=== PATIENT | female | born 1995 | race Caucasian/White ===

== ENCOUNTER 2018-11-26 08:13 | Inpatient (IN) ==
[2018-11-26] MEDS ORDERED: OXYTOCIN 30 UNITS/500 ML BAG IV PRN ×3 (08:38→15:18)
--- NOTE | 2018-11-26 08:40 | History & Physical Report ---
Date of Service November 26, 2018 Assessment & Plan (1) PROM (premature rupture of membranes): 23yo at 39.3 weeks GA. PROM 1. Fetus: Cat 1 2. Labor: PROM. Will start oxytocin 3. Vitals WNL 4. GBS neg 5. Rh positive History of Present Illness Primary Care Provider: NO PCP 23yo at 39.3 weeks GA. Patient presents with LOF and mild irregular contractions. Denies VB. Good FM. course complicated be tobacco use in early . Allergies Allergy/AdvReac Type Severity Reaction Status Date / Time No Known Allergies Allergy Unverified 12/13/15 20:42 Patient History Social History Preferred Language: Hebrew Communication Ability: Effective marital status: Single Current Living Situation: Parent Current Living Situation Comment: lives with her father-shared custody of daughter Smoking Status: Current every day smoker Tobacco Type: cigarettes Cigarettes Per Day: 5 Do You Dip or Chew Tobacco: No Second Hand Exposure: No Hx Alcohol Use: No Hx Substance Use: No Physical Exam Gastrointestinal (Abdomen): Percussion/Palpation: abdomen soft; abdomen nontender Genitourinary: OB Exam Abdomen: + vertex and + estimated weight (6.5- 7.5) Manual OB Exam: + cervical dilation 2 cm, + cervical effacement 70%, + station -2 and + amniotic fluid clear, nitrazine positive and ferning present OB Exam Monitor Tracing: + external uterine monitor used and + category I Results & Data Vital Signs (Past 12 Hours) Vital Signs Pulse BP 11/26/18 08:17 73 126/67
[2018-11-26 08:59] LABS: Hematocrit (blood only) 34.8 % (37-47); Mean Corpuscular Volume 96.1 fL (80-100); Mean Platelet Volume 9.9 fL (7.4-10.4); Platelet Count 203 K/uL (130-400); RDW Standard Deviation 45.3 fL (36.4-46.3); Red Blood Count 3.62 M/uL (4.2-5.4); White Blood Count 11.58 K/uL (4.8-10.8)
[2018-11-26] MEDS: LACTATED RINGER'S 1,000 ML IV PRN ×2 (09:10→10:53)
[2018-11-26 09:13] LABS: Mean Corpuscular Hgb Conc 34.5 g/dL (32-36)
[2018-11-26] MEDS ORDERED: fentaNYL citrate 100 MCG/2 ML VIAL ONE (10:35)
[2018-11-26] MEDS ORDERED: ePHEDrine sulfate 50 MG/ML AMP ONE (10:35)
[2018-11-26] MEDS ORDERED: BUPIVACAINE 0.25% 30 ML VIAL ONE (10:35)
[2018-11-26] MEDS ORDERED: fentaNYL 2MCG/ML ROPIV 1.25MG/ML 100 ML BAG EPI ONE (10:36)
--- NOTE | 2018-11-26 11:07 | Anesthesiology Consultation ---
Date of Service November 26, 2018 Assessment & Plan (1) Encounter for pre-operative examination: Chart Review Chart Review: Acceptable Risk for Labor Epidural History Height/Weight Height: 5 ft 3 in Weight: 68.946 kg Allergies Allergy/AdvReac Type Severity Reaction Status Date / Time No Known Allergies Allergy Verified 11/26/18 10:06 Medications Home Medications Medication Instructions Recorded Confirmed Last Taken PNV no.[id number] 1 tab PO DAILY 11/26/18 11/26/18 11/25/18 08:00 [ Gummies] cetirizine [Zyrtec] 10 mg PO DAILY PRN 11/26/18 11/26/18 Unknown ranitidine HCl [Zantac] 150 mg PO DAILY PRN 11/26/18 11/26/18 Unknown Active Medications Generic Name Dose Route Start Last Admin Trade Name Freq PRN Reason Stop Dose Admin Oxytocin 30 units in 500 mls @ 4 mls/hr 11/26/18 08:39 11/26/18 10:00 Pitocin IV 12/26/18 08:38 0.24 units/hr .Q24H PRN 4 mls/hr Labor Induction/Augmentation Titration Protocol 0.24 UNITS/HR Lactated Ringer's 1,000 mls @ 125 mls/hr 11/26/18 08:38 11/26/18 10:53 Lr IV 11/28/18 08:37 999 mls/hr .Q8H PRN Administration L&D Protocol Protocol Past Medical History Medical History Anxiety Asthma Smoker Social History Smoking Status: Current every day smoker tobacco type: cigarettes Smoking cigarettes per day: 5 Do You Dip or Chew Tobacco: No Hx Alcohol Use: No Hx Substance Use: No Physical Exam Vital Signs Last Vital Signs Temp 36.5 C 11/26/18 10:51 Pulse 77 11/26/18 11:01 Resp 20 11/26/18 10:51 BP 120/69 11/26/18 10:51 Pulse Ox 99 11/26/18 11:01 Testing Laboratory Results 11/26/18 08:47
[2018-11-26] MEDS ORDERED: NALOXONE HCL 1 MG in SODIUM CHLORIDE 0.9% 1000ML 1,000 ML IV PRN (11:32)
[2018-11-26] MEDS ORDERED: fentaNYL 2MCG/ML ROPIV 1.25MG/ML 100 ML BAG EPI PRN (11:32)
[2018-11-26] MEDS ORDERED: ONDANSETRON INJ 2 MG/ML 2 ML VIAL IV PRN (11:32)
[2018-11-26] MEDS ORDERED: NALOXONE HCL 0.4 MG/1 ML VIAL/CARP IV PRN (11:32)
[2018-11-26] MEDS ORDERED: ePHEDrine sulfate 50 MG/ML AMP IV PRN (11:32)
--- NOTE | 2018-11-26 13:27 | Labor Progress Brief Note ---
Date of Service November 26, 2018 Subjective Reason For Note: Routine Evaluation Assessment & Plan (1) PROM (premature rupture of membranes): 23yo at 39.3 weeks GA. PROM 1. Fetus: Cat 1 2. Labor: PROM. Progressing - Continue oxytocin 3. Vitals WNL 4. GBS neg 5. Rh positive Physical Exam Genitourinary: OB Exam Abdomen: + vertex and + regular contractions Manual OB Exam: + cervical dilation 8 cm, + cervical effacement 100% and + station 0 OB Exam Monitor Tracing: + external FHT monitor used, + external uterine monitor used and + category I Results & Data Vital Signs (Past 12 Hours) Vital Signs Temp Pulse Resp BP Pulse Ox 11/26/18 13:22 65 100 11/26/18 13:17 114 H 94 11/26/18 13:16 65 119/62 11/26/18 13:12 89 100 11/26/18 13:11 63 122/66 11/26/18 13:08 72 120/72 11/26/18 13:07 55 L 100 11/26/18 13:03 67 108/79 11/26/18 13:02 86 100 11/26/18 12:57 62 97 11/26/18 12:56 65 112/69 11/26/18 12:52 88 98 11/26/18 12:51 65 118/67 11/26/18 12:47 70 131/61 97 11/26/18 12:43 66 115/59 L 11/26/18 12:42 73 97 11/26/18 12:37 64 97 11/26/18 12:36 68 117/68 11/26/18 12:32 68 117/67 97 11/26/18 12:28 74 113/63 11/26/18 12:27 66 96 11/26/18 12:22 81 99 11/26/18 12:21 88 115/68 11/26/18 12:17 74 97 11/26/18 12:16 67 116/61 11/26/18 12:12 82 98 11/26/18 12:11 80 117/61 11/26/18 12:07 70 121/62 97 11/26/18 12:02 77 97 11/26/18 12:01 66 120/61 11/26/18 11:57 68 122/58 L 98 11/26/18 11:52 75 118/60 98 11/26/18 11:48 72 125/59 L 11/26/18 11:47 83 98 11/26/18 11:42 77 98 11/26/18 11:41 64 112/63 11/26/18 11:37 81 99 11/26/18 11:35 76 111/59 L 11/26/18 11:32 78 110/61 99 11/26/18 11:29 82 125/63 11/26/18 11:27 62 100 11/26/18 11:26 56 L 120/65 11/26/18 11:24 68 118/58 L 11/26/18 11:22 75 99 11/26/18 11:17 76 99 11/26/18 11:12 73 100 11/26/18 11:10 81 89 L 11/26/18 11:07 75 100 11/26/18 11:01 77 99 11/26/18 10:56 89 100 11/26/18 10:51 36.5 C 63 20 120/69 99 11/26/18 09:26 76 117/72 11/26/18 08:34 36.5 C 18 11/26/18 08:17 73 126/67
[2018-11-26] MEDS ORDERED: BISACODYL 10 MG SUPP PR PRN (15:18)
[2018-11-26] MEDS ORDERED: DIPHTHERIA/TETANUS/PERTUSSIS 0.5 ML SYR/VIAL IM ONE (15:18)
[2018-11-26] MEDS ORDERED: HYDROCORTISONE ACETATE 25 MG SUPP PR PRN (15:18)
[2018-11-26] MEDS ORDERED: ACETAMINOPHEN 325 MG TAB PO PRN (15:18)
[2018-11-26] MEDS ORDERED: SUPERCREAM 0.870% 15 GM JAR EXT PRN (15:18)
[2018-11-26] MEDS ORDERED: BENZOCAINE 20% AER SPR 82.5 GM CAN EXT PRN (15:18)
--- NOTE | 2018-11-26 16:59 | Delivery Summary ---
DATE OF OPERATION: 11/26/2018 PROCEDURE: Normal spontaneous vaginal delivery. SURGEON: Dr. Michael Bailey. PREOPERATIVE DIAGNOSES: 1. Single intrauterine at 39 weeks 3 days gestational age. 2. Premature rupture of membranes. 3. GBS negative. POSTOPERATIVE DIAGNOSES: 1. Single intrauterine at 39 weeks 3 days gestational age. 2. Premature rupture of membranes. 3. GBS negative. 4. Delivered. ESTIMATED BLOOD LOSS: 200 mL. DRAINS: None. FLUIDS: Continuous lactated ringer. URINE OUTPUT: Not measured. COMPLICATIONS: None. FINDINGS: Viable male with weight pending. Apgars of 9 and 9 at 1 and 5 minutes respectively. INDICATIONS: The patient is a 23-year-old G3, P1-0-1-1, admitted at 39 weeks 3 days gestational age with premature rupture of membranes. At time of admission, the patient was noted to be 2 cm dilated, -2 station, cephalic by sutures. The patient was augmented with oxytocin per regular protocol and progressed in labor with rupture of a forebag. The patient received an epidural for anesthesia. The patient felt the urge to push and pushed for approximately 20-25 minutes to achieve delivery. DESCRIPTION OF PROCEDURE: The patient progressed to 10 cm dilated, +2 station, pushed over intact perineum with epidural anesthesia and delivered a viable male infant with weight and Apgars as noted above. Head of the delivered in ABELINO position. No nuchal cord was noted. Body and shoulders quickly followed. The was noted to be vigorous soon after delivery and a 1 minute delayed cord clamping was initiated. The cord was then double clamped and cut and the remained on maternal abdomen as it was still noted to be vigorous. Cord blood was then obtained. Attention was then turned delivery of the placenta, it was delivered intact, 3-vessel cord, gentle cord traction. On inspection of perineum, vagina and cervix, there is noted to be no lacerations. Sponge and instrument counts were correct at the completion of the case. Both mother and were stable in the immediate post delivery period. I attest to the content of the Intraoperative Record and any orders documented therein. Any exceptions are noted below. MTDD
--- NOTE | 2018-11-26 17:20 | Anesthesia Procedure Note ---
Date of Service November 26, 2018 Anesthesia Post Epidural Note Vital Signs Vital Signs: Temp Pulse Resp BP Pulse Ox 36.8 C 77 18 117/56 L 98 11/26/18 13:29 11/26/18 16:51 11/26/18 13:37 11/26/18 16:51 11/26/18 15:12 Pain Intensity Abdomen: Pain Intensity: 5 Notes Mental Status: alert / awake / arousable and participated in evaluation Nausea / Vomiting: adequately controlled Pain: adequately controlled Airway Patency, RR, SpO2: stable & adequate BP & HR: stable & adequate Hydration State: stable & adequate Neuraxial Anesthesia: was administered and sensory block is resolving Anesthetic Complications: no major complications apparent Epidural: Removed without complications and With tip intact
[2018-11-26] MEDS: DOCUSATE SODIUM 100 MG CAP PO SCH (21:11)
[2018-11-26] MEDS: IBUPROFEN 600 MG TAB PO PRN (21:32)
[2018-11-27] MEDS: IBUPROFEN 600 MG TAB PO PRN (05:31)
[2018-11-27 06:55] LABS: Hematocrit (blood only) 32.9 % (37-47); Hemoglobin 11.3 g/dL (12.0-16.0)
--- NOTE | 2018-11-27 06:56 | Obstetrical Progress Note ---
Date of Service <Fracisco Coronado MD - Last Filed: 11/27/18 07:06> November 27, 2018 Assessment & Plan <Fracisco Coronado MD - Last Filed: 11/27/18 07:06> Day #:: 1 ( 23-year-old PPD#1 status post vaginal delivery at 39+3. - PPD#1 - GBS negative, Blood Type O+ - Feels well today. Eating well, voiding well, ambulating well. - Pain well controlled with Motrin. - Routine post care - After discharge will have [address] Bailey.) Subjective <Fracisco Coronado MD - Last Filed: 11/27/18 07:06> Ambulation: ambulating normally Voiding: no voiding problems Passing Gas:: Yes Diet Tolerance:: regular diet Lochia:: Moderate Feeding Type:: breast feeding Current Pain Level(1-10): 0 Physical Exam <Fracisco Coronado MD - Last Filed: 11/27/18 07:06> OB PE General: Alert, oriented. No acute distress. Cardiac: Regular rate and rhythm, no murmurs/rubs/gallops. Respiratory: Clear to auscultation anterior and posteriorly, no wheezes/rales /rhonchi. No increased work of breathing. Symmetrical chest rise. No respiratory distress. Abdomen: Soft, nontender, nondistended. Bowel sounds present. Uterus: Uterine fundus firm, palpable 1 cm above umbilicus. Lower Extremities: No lower extremity edema or swelling. No deep calf pain. Warner's negative bilaterally. OB ROS Denies fever, chills, sweats Denies shortness of breath, difficulty breathing, chest pain, palpitations, chest pressure. Denies breast pain. Denies dysuria. Denies headache. Results & Data <Fracisco Coronado MD - Last Filed: 11/27/18 07:06> Vital Signs (Past 12 Hours) Vital Signs Temp Pulse Resp BP BP Pulse Ox 11/27/18 03:45 36.6 C 76 16 107/61 97 11/27/18 00:05 36.8 C 66 20 117/70 98 11/26/18 19:40 36.8 C 67 18 113/68 97 <Michael Bailey MD - Last Filed: 11/30/18 09:36> Co-Signing Physician Notes Patient evaluated and agree with the above findings and plan
[2018-11-27] MEDS: PRENATAL VITAMIN 1 TAB PO SCH (07:29)
[2018-11-27] MEDS: DOCUSATE SODIUM 100 MG CAP PO SCH ×2 (07:29→20:43)
[2018-11-27] MEDS ORDERED: BISACODYL 5 MG TABEC PO SCH (20:00)
[2018-11-28] MEDS: IBUPROFEN 600 MG TAB PO PRN ×2 (00:35→05:33)
--- NOTE | 2018-11-28 05:44 | Obstetrical Progress Note ---
Date of Service <Fracisco Coronado MD - Last Filed: 11/28/18 06:26> November 28, 2018 Assessment & Plan <Fracisco Coronado MD - Last Filed: 11/28/18 06:26> Day #:: 2 ([23-year-old s/p vaginal delivery at 39+3] -PPD#2 - GBS negative, Blood Type O+ - Feels well today. Eating well, voiding well, ambulating well. - Pain well controlled. - Routine post care - After discharge will have [address] Bailey. ) Subjective <Fracisco Coronado MD - Last Filed: 11/28/18 06:26> Ambulation: ambulating normally Voiding: no voiding problems Passing Gas:: Yes (Has had a bowel movement) Diet Tolerance:: regular diet Lochia:: Small Feeding Type:: breast feeding Current Pain Level(1-10): 3 (when , improves with Motrin) Physical Exam <Fracisco Coronado MD - Last Filed: 11/28/18 06:26> OB PE General: Alert, oriented. No acute distress. Cardiac: Regular rate and rhythm, no murmurs/rubs/gallops. Respiratory: Clear to auscultation bilaterally, no wheezes/rales/rhonchi. No increased work of breathing. Symmetrical chest rise. No respiratory distress. Abdomen: Soft, nontender, nondistended. Uterus: Uterine fundus firm, palpable 2cm below umbilicus. Lower Extremities: No lower extremity edema or swelling. No deep calf pain. Warner's negative bilaterally. OB ROS Denies fever, chills, Denies shortness of breath, difficulty breathing, chest pain, palpitations. Denies breast pain. Denies dysuria. Denies headache. Results & Data <Fracisco Coronado MD - Last Filed: 11/28/18 06:26> Vital Signs (Past 12 Hours) Vital Signs Temp Pulse Resp BP 11/27/18 23:20 36.6 C 71 18 123/74 <Alma Hernadez MD, FACOG - Last Filed: 11/28/18 06:40> Co-Signing Physician Notes Resident Physician Supervision Note: I interviewed and examined the patient. Discussed with Dr. Coronado and agree with findings and plan as documented in the note. Any exceptions or clarifications are listed here: Doing well, no complaints. ready for discharge. ff 1 down, nt, nt calves. will plan f/u 6 wks, instructions reviewed. Documented By: Alam Hernadez MD, FACOG
[2018-11-28] MEDS: PRENATAL VITAMIN 1 TAB PO SCH (07:52)
[2018-11-28] MEDS: DOCUSATE SODIUM 100 MG CAP PO SCH (07:52)
== END 2018-11-28 10:37 | disposition home or self-care (01) | DRG 807 ==
LOC: OPB 08:13 → 4S1 08:14 → 4S2 17:05